=== PATIENT | male | born 1965 | race Caucasian/White ===

== ENCOUNTER 2018-03-17 00:38 | Emergency (ER) | payer MEDICAID ==
[~2018-03-17] VITALS: Ht 165.1 cm; Wt 97.3 kg
[~2018-03-17 00:38] MED LIST: CIPR-278 PO
[2018-03-17] MEDS ORDERED: ALLO300 PO (00:56)
[2018-03-17] MEDS ORDERED: INDO25 PO (00:56)
[2018-03-17] MEDS ORDERED: MORPHINE SULFATE 4 MG/ML SYRINGE IM ONE (02:45)
[2018-03-17] MEDS ORDERED: ONDANSETRON HCL 4 MG/2 ML VIAL IM ONE (02:45)
[2018-03-17 03:09] LABS: BASOPHILS % (AUTO) 1.2 % (0.0-2.0); EOSINOPHILS % (AUTO) 3.2 % (1.0-6.0); HEMATOCRIT 34.7 % (41-53); HEMOGLOBIN 11.5 g/dL (13.5-17.5); LYMPHOCYTES % (AUTO) 25.8 % (22.0-44.0); MEAN CORPUSCULAR HEMOGLOBIN 30.9 pg (26.0-34.0); MEAN CORPUSCULAR HGB CONC 33.1 G/dL (31.0-37.0); MEAN CORPUSCULAR VOLUME 94 fL (80-100); MONOCYTES # (AUTO) 0.6 K/uL (0.1-1.0); MONOCYTES % (AUTO) 8.5 % (2.0-9.0); NEUTROPHILS # (AUTO) 4.6 K/uL (1.8-7.7); NEUTROPHILS % (AUTO) 61.3 % (40.0-70.0); PLATELET COUNT (AUTO) 277 K/uL (150-450); RED CELL DISTRIBUTION WIDTH 14.2 % (11.5-14.5)
[2018-03-17 04:29] VITALS: BP 145/76
== END 2018-03-17 04:30 | disposition home or self-care (01) ==
LOC: EMS 00:39
DX: M25.462 Effusion, left knee (principal); M10.9 Gout, unspecified; M79.89 Other specified soft tissue disorders; Z87.440 Personal history of urinary (tract) infections
CPT/HCPCS: 36415; 73562; 85025; 86140; 96372; 99285; J2270; J2405

== ENCOUNTER 2019-04-15 19:29 | Emergency (ER) | payer SELFPAY ==
[~2019-04-15] VITALS: Ht 167.6 cm; Wt 113.6 kg
[~2019-04-15 19:29] MED LIST changes: +ALLO300 PO; -CIPR-278 PO; +INDO-16 PO
[2019-04-15] MEDS ORDERED: COLCHICINE 0.6 MG TABLET PO ONE ×2 (23:00)
[2019-04-15] MEDS ORDERED: KETOROLAC TROMETHAMINE 60 MG/2 ML VIAL IM ONE (23:45)
[2019-04-16 00:36] VITALS: BP 130/74
== END 2019-04-16 01:12 | disposition home or self-care (01) ==
LOC: EMS 19:31
DX: M10.9 Gout, unspecified (principal); Z98.890 Other specified postprocedural states; Z79.899 Other long term (current) drug therapy
CPT/HCPCS: 36415; 84550; 96372; 99283; J1885